=== PATIENT | male | born 1945 | race Hispanic/Latino ===

== ENCOUNTER 2018-07-30 11:51 | Day surgery (SDC) | payer MEDICARE, OTHER ==
[2018-07-29 12:13] VITALS: BMI 36.9
[2018-07-30 12:31] LABS: BASO # 0.04 K/mm3 (0.0-2.0); BASO % 0.6 % (0.0-3.0); EOS # 0.2 (0.0-0.7); EOS % 3.9 % (1.5-5.0); HEMOGLOBIN 14.2 g/dL (14.0-18.0); LYMPH # 1.9 (1.2-3.4); LYMPH % 30.8 % (22.0-35.0); MEAN CELL VOLUME 98.3 fl (80.0-105.0); MEAN CORPUSCULAR HEMOGLOBIN 33.5 pg (25.0-35.0); MEAN CORPUSCULAR HGB CONC 34.1 g/dl (31.0-37.0); MEAN PLATELET VOLUME 10.1 fl (7.0-11.0); MONO # 0.6 (0.1-0.6); RBC 4.24 10^6/uL (3.5-6.1); RED CELL DISTRIBUTION WIDTH 14.6 % (11.5-14.5); WHITE BLOOD COUNT 6.2 10^3/uL (4.5-11.0)
[2018-07-30 12:40] LABS: INR 1.28; PARTIAL THROMBOPLASTIN TIME 35.5 Seconds (26.9-38.3); PROTHROMBIN TIME 14.5 SECONDS (9.4-12.5)
[2018-07-30] MEDS ORDERED: Iodixanol 320 MG/ML 200 ML BOTTLE IV ONE (12:50)
[2018-07-30] MEDS ORDERED: Iodixanol 320 mg/ml 150 ml Bottle IV ONE (12:50)
[2018-07-30] MEDS ORDERED: Nitroglycerin 50mg in D5W 50 MG/250 ML BOTTLE IV ONE (12:50)
[2018-07-30] MEDS ORDERED: Lidocaine 2% PF (10 ml) Amp ONE (12:56)
[2018-07-30 14:11] LABS: BLOOD UREA NITROGEN 11 mg/dL (7-21); CALCIUM 8.5 mg/dL (8.4-10.5); GFR NON-AFRICAN AMERICAN > 60
[2018-07-30] MEDS ORDERED: Midazolam 2 MG/2 ML VIAL ONE ×3 (14:27→15:29)
[2018-07-30] MEDS ORDERED: Oxycodone/Acetaminophen 5/325 mg Tab PO PRN (16:30)
[2018-07-30] MEDS ORDERED: Sodium Chloride 0.45% 1,000 ML IV SCH (16:30)
[2018-07-30 17:45] VITALS: RESP 18
[2018-07-30 18:23] VITALS: TEMP 97.3; O2SAT 100
[2018-07-30 18:58] VITALS: BP 154/70; PULSE 59
--- NOTE | 2018-07-30 19:38 | VASCULAR ---
Date of service: 07/30/2018 PROCEDURE: 1. Celiac arteriogram. 2. SMA arteriogram. 3. Sub selective hepatic arteriograms. HISTORY: Cirrhosis. Two enhancing lesions consistent with hepatoma. Evaluate for Y 90 embolization. COMPARISON: TECHNIQUE: The relative risks and indications of the procedure were explained the patient consent obtained. Patient placed supine on the arteriogram table in the right groin prepped and draped usual sterile fashion. Conscious sedation monitoring were provided throughout the procedure by a nurse. Under ultrasound guidance, the right common femoral artery was punctured with a micropuncture set. A 5 Danish sheath was placed. Through the sheath number guidewire a 5 Danish C2 catheter was placed in the proximal SMA. A DSA SMA arteriogram was performed. Next the catheter was placed in the celiac axis and a DSA celiac axis arteriogram performed. The catheter was advanced in the common hepatic artery and a DSA common hepatic arteriogram performed. A Progreat microcatheter was advanced through the 5 Danish C2 catheter and used to perform sub selective DSA arteriograms involving the right and left hepatic arteries. Three superiorly oriented right hepatic arteries were sub selectively cannulated with angiograms. The sheath was removed hemostasis obtained with a Perclose device. The patient tolerated the procedure well P FINDINGS: The SMA is widely patent. No apparent hepatic arterial supply is present off the SMA. The celiac axis is normal. The left hepatic artery was injected and no evidence of a hypervascular mass in the left lobe was appreciated. Multiple subselective DSA arteriograms of right hepatic branches were obtained through the microcatheter. No neovascularity or enhancing lesions are appreciated. IMPRESSION: Despite multiple sub selective arteriograms, no enhancing lesions were noted in the right lobe of the liver. Widely patent celiac axis and SMA.
--- NOTE | 2018-07-31 17:20 | CT ---
Date of service: 07/30/2018 PROCEDURE: CT Abdomen and Pelvis with and without intravenous contrast HISTORY: CT ABD W/ IV CONTRAST-3MM SLICES-3 PHASE LIVER PER SERRANO COMPARISON: MRI abdomen outside study 04/26/2018 TECHNIQUE: Axial images of the abdomen were obtained in the pre contrast, hepatic arterial, portal venous and delayed phases of enhancement. Coronal and sagittal reformats were generated. Contrast dose: 150 mL Omnipaque 350 Radiation dose: Total exam DLP = 5661.06 mGy-cm. This CT exam was performed using one or more of the following dose reduction techniques: Automated exposure control, adjustment of the mA and/or kV according to patient size, and/or use of iterative reconstruction technique. FINDINGS: LOWER THORAX: Unremarkable. LIVER: Markedly cirrhotic liver with atrophy of right hepatic lobe. Nodular contour. Likely status post segmental resection in segment 7 there is a rounded low-density mass identified, approximately 1.4 cm. This is seen on outside MR examination. This mass enhances to ice a density on delayed images. It does not demonstrate arterial phase hyperenhancement. In segment 3, there is an ill-defined low-density mass measuring roughly 3.4 cm in greatest dimension. This demonstrates minimal enhancement on delayed images. This does not demonstrate arterial phase hyperenhancement. No other mass is identified. There is no biliary dilatation. GALLBLADDER AND BILE DUCTS: Cholelithiasis. No mural thickening. No pericholecystic fluid. There dilatation of the common bile duct up to approximately 11 mm diameter. No associated intrahepatic biliary dilatation. Significance uncertain. PANCREAS: No mass or pancreatic ductal dilatation. No evidence of acute pancreatitis. SPLEEN: Unremarkable. ADRENALS: Unremarkable. No mass. KIDNEYS AND URETERS: Unremarkable. No hydronephrosis. No solid mass. VASCULATURE: No evidence of abdominal aortic aneurysm. Extensive varices in left upper quadrant of abdomen. Perigastric varices noted. There is atherosclerotic calcification of the abdominal aorta. BOWEL: Unremarkable. No obstruction. No gross mural thickening. APPENDIX: Not identified. PERITONEUM: Unremarkable. No free fluid. No free air.. LYMPH NODES: Unremarkable. No enlarged lymph nodes. BLADDER: Unremarkable. REPRODUCTIVE: Normal prostate BONES: No acute fracture. OTHER FINDINGS: None. IMPRESSION: Two hepatic masses with atypical patterns of enhancement. Likely status post segmental hepatic resection. Cholelithiasis without evidence of cholecystitis.
== END 2018-07-30 19:30 | disposition home or self-care (01) ==
LOC: SDSVAS 11:51
PROVIDERS: ATTEND Radiology Vascular & Interventional Radiology
DX: C22.0 Liver cell carcinoma (principal); K74.60 Unspecified cirrhosis of liver; K76.6 Portal hypertension; G93.40 Encephalopathy, unspecified; I81 Portal vein thrombosis; K80.20 Calculus of gallbladder without cholecystitis without obstruction; Z88.0 Allergy status to penicillin; F10.21 Alcohol dependence, in remission; F17.290 Nicotine dependence, other tobacco product, uncomplicated; Z80.6 Family history of leukemia; Z80.3 Family history of malignant neoplasm of breast
CPT/HCPCS: 36245; 36247; 36248; 36415; 74177; 75726 ×2; 75774; 78291; 80048; 85025; 85610; 85730; 99152; 99153; C1760 ×2; C1769 ×3; C1894; J1644; J2250; J2270; J2405; J3010; J7030; Q9966; Q9967 ×2

== ENCOUNTER 2018-08-06 11:22 | Day surgery (SDC) | payer MEDICARE, OTHER ==
[2018-07-29 12:13] VITALS: BMI 36.9
[2018-08-06] MEDS ORDERED: Lidocaine 1% Inj (20ml) ONE (14:34)
[2018-08-06] MEDS ORDERED: Midazolam 2 MG/2 ML VIAL ONE ×3 (14:34→15:24)
[2018-08-06] MEDS ORDERED: Midazolam 2 MG/2 ML VIAL IVP ONE (14:45)
[2018-08-06] MEDS ORDERED: ETHANOL INJ ONE (15:30)
[2018-08-06] MEDS ORDERED: Oxycodone/Acetaminophen 5/325 mg Tab PO PRN (15:41)
[2018-08-06] MEDS ORDERED: HYDROmorphone 2 mg/ml ISec IVP PRN (15:43)
[2018-08-06] MEDS ORDERED: Sodium Chloride 0.45% 1,000 ML IV SCH (15:45)
[2018-08-06 16:29] VITALS: RESP 18; TEMP 98.1
[2018-08-06] MEDS ORDERED: HYDROmorphone 2 mg/ml ISec ONE (16:39)
--- NOTE | 2018-08-06 18:06 | RAD ---
HISTORY: rt liver bx. r/o PTX COMPARISON: None available TECHNIQUE: Chest, one view. FINDINGS: LUNGS: No focal consolidation. Please note that chest x-ray has limited sensitivity for the detection of pulmonary masses. PLEURA: No significant pleural effusion identified. 4 mm lucency at the right lung apex suspected to reflect tiny pneumothorax. CARDIOVASCULAR: Cardiomegaly with CTR approximately 20.8/33.2. Dense atherosclerotic calcification of the aortic knob. OSSEOUS STRUCTURES: No acute osseous abnormality identified. VISUALIZED UPPER ABDOMEN: Unremarkable. OTHER FINDINGS: None. IMPRESSION: 4 mm lucency at the right lung apex suspected to reflect tiny pneumothorax. Cardiomegaly. Dense atherosclerotic calcification of the aorta. Dr. Michelle notified of findings on 08/06/18 at 3:55 p.m.
[2018-08-06 18:31] VITALS: BP 160/75; PULSE 63; O2SAT 98
--- NOTE | 2018-08-06 18:43 | CT ---
PROCEDURE: CT guided hepatic ethanol injection HISTORY: Hep C cirrhosis. 15 mm hepatoma. Percutaneous S in all injection. PHYSICIAN(S): Nito Michelle MD. TECHNIQUE: The relative risks and indications of the procedure were explained to the patient and consent obtained. The patient was placed left decubitus position on the CT scanner and preliminary images through the liver obtained. Conscious sedation and monitoring were provided throughout the procedure by a nurse. The liver is cirrhotic. There is a 15 mm low-attenuation lesion in the right lobe superiorly which corresponds to the abnormality seen on previous MRI. The areas prepped and draped usual sterile fashion. The skin and soft tissues were anesthetized 1 percent xylocaine. A 15 cm Karl Quadra Fuse needle was advanced from a lateral approach into the 1.5 cm lesion. A trans pleural course was taken. Position was confirmed with CT images. The yanet were advanced to 2 cm additional imaging performed. Next 15 cc of denatured alcohol was placed through the Quadra Fuse needle. Good dispersion of alcohol was noted. The needle was rotated during the infusion. The patient tolerated the procedure well. IMPRESSION: 1. CT-guided percutaneous ethanol hepatic injection as described above
== END 2018-08-06 19:30 | disposition home or self-care (01) ==
LOC: SDS 11:22
PROVIDERS: ATTEND Radiology Vascular & Interventional Radiology
DX: C22.0 Liver cell carcinoma (principal); K74.60 Unspecified cirrhosis of liver; B19.20 Unspecified viral hepatitis C without hepatic coma; I70.0 Atherosclerosis of aorta; Z88.0 Allergy status to penicillin
CPT/HCPCS: 47382; 71045; 77012; 99152; 99153; J1170; J2250; J2405; J3010; J7030